=== PATIENT | male | born 1995 | race Caucasian/White ===

== ENCOUNTER 2017-07-24 07:38 | Emergency (ER) | payer OTHER | END 2017-07-24 08:35 | disposition left against medical advice (07) | LOC: ED 07:38 | DX: R06.02 Shortness of breath (principal); Z53.21 Procedure and treatment not carried out due to patient leaving prior to being seen by health care provider ==

== ENCOUNTER 2019-03-06 15:23 | Emergency (ER) | payer OTHER ==
[~2019-03-06] VITALS: Ht 175.3 cm; Wt 70.3 kg
[2019-03-06 15:45] VITALS: Ht 175.3 cm; Wt 70.3 kg
[2019-03-06 16:57] VITALS: BP 132/78
== END 2019-03-06 16:57 | disposition home or self-care (01) ==
LOC: ED 15:23
DX: S39.011A Strain of muscle, fascia and tendon of abdomen, initial encounter (principal); X50.0XXA Overexertion from strenuous movement or load, initial encounter; Y93.89 Activity, other specified; Y92.89 Other specified places as the place of occurrence of the external cause; Y99.8 Other external cause status

== ENCOUNTER 2019-08-07 17:13 | Emergency (ER) | payer SELFPAY ==
[~2019-08-07] VITALS: Ht 175.3 cm; Wt 119.3 kg
[2019-08-07 17:37] VITALS: BP 136/84; Ht 175.3 cm; Wt 119.3 kg
[2019-08-07 18:13] LABS: BASOPHIL % 1.3 % (0-2); PLATELET COUNT 279 x10^3mcL (130-400); RED CELL DISTRIBUTION WIDTH 13.3 % (11.5-14.5)
[2019-08-07 18:16] LABS: CARBON DIOXIDE 30.7 mmol/L (21-32); CHLORIDE SERUM 103 mmol/L (98-107); CREATININE SERUM 0.8 mg/dL (0.7-1.3); GFR1 > 60 mL/min; GLUCOSE SERUM 81 mg/dL (74-106); POTASSIUM SERUM 4.5 mmol/L (3.5-5.1); SODIUM SERUM 138 mmol/L (136-145)
[2019-08-07 18:17] LABS: ALKALINE PHOSPHATASE 110 U/L (46-116); ALT/SGPT 40 U/L (16-63); AST/SGOT 18 U/L (15-37); BILIRUBIN TOTAL 0.3 mg/dL (0.20-1.00); CALCIUM 9.1 mg/dL (8.5-10.1); TOTAL PROTEIN, SERUM 7.8 g/dL (6.4-8.2)
== END 2019-08-07 19:10 | disposition home or self-care (01) ==
LOC: ED 17:13
PROVIDERS: Emergency Medicine
DX: R00.2 Palpitations (principal); F12.10 Cannabis abuse, uncomplicated; Z91.030 Bee allergy status; Z90.89 Acquired absence of other organs
CPT/HCPCS: 36415

== ENCOUNTER 2020-02-03 15:58 | Emergency (ER) | payer OTHER ==
[~2020-02-03] VITALS: Ht 175.3 cm; Wt 126.6 kg
[2020-02-03 15:59] VITALS: Ht 175.3 cm; Wt 126.6 kg
[2020-02-03 17:01] VITALS: BP 135/55
== END 2020-02-03 17:01 | disposition home or self-care (01) ==
LOC: ED 15:58
DX: L60.0 Ingrowing nail (principal); Z91.030 Bee allergy status
CPT/HCPCS: J1885; J2001